=== PATIENT | female | born 1980 | race Caucasian/White ===

== ENCOUNTER 2022-02-06 08:06 | Outpatient (CLI) | payer BC | END 2022-02-06 08:07 | disposition home or self-care (01) | LOC: BICMAMMO 08:06 | PROVIDERS: ATTEND Obstetrics & Gynecology | DX: N63.11 Unspecified lump in the right breast, upper outer quadrant (principal) | CPT/HCPCS: 77066; G0279 ==

== ENCOUNTER 2022-08-08 07:56 | Outpatient (CLI) | payer BC | END 2022-08-08 07:57 | disposition home or self-care (01) | LOC: BICULT 07:56 | PROVIDERS: ATTEND Obstetrics & Gynecology | DX: N63.10 Unspecified lump in the right breast, unspecified quadrant (principal); N60.01 Solitary cyst of right breast ==